=== PATIENT | male | born 1990 | race Caucasian/White ===

== ENCOUNTER 2021-10-25 20:02 | Emergency (ER) | payer OTHER, SELFPAY ==
[2021-10-25 20:13] VITALS: BP 148/78; PULSE 99; RESP 17; TEMP 37; O2SAT 99
--- NOTE | 2021-10-25 20:50 | ED.PSYCH ---
HPI - Psych General Chief Complaint: Psychiatric Symptoms Stated Complaint: MENTAL HEALTH EVAL Time Seen by Provider: 10/25/21 20:30 Source: patient Mode of arrival: ambulatory Limitations: no limitations History of Present Illness HPI Narrative: Patient is a 31-year-old male was sent here by the police for mental health evaluation after he locked himself in the bathroom with a gun. Patient states that he had a heated argument with his family, he had been drinking which it amplified the argument so he went to the bathroom with regard. Patient states that he did not intend to use it on himself or others, states that he was not thinking right because he also had been drinking. Patient states that he has 1 episode of suicidal thought years ago but has not occurred since. Patient denies any psych illnesses such as anxiety, depression, bipolar or schizophrenia. Patient currently denies any suicidal or homicidal thoughts. Related Data Home Medications Medication Instructions Recorded Confirmed No Home Medications 10/25/21 Allergies Allergy/AdvReac Type Severity Reaction Status Date / Time No Known Allergies Allergy Verified 10/25/21 20:18 Review of Systems Review of Systems: All systems reviewed & are unremarkable except as noted in HPI and below Constitutional: Constitutional: Denies body ache(s), Denies chills, Denies excessive sweating, Denies fatigue, Denies fever(s), Denies headache(s), Denies lethargy, Denies malaise, Denies weakness and Denies weight loss Eyes: Eyes: Denies blurry vision, Denies change in vision and Denies loss of vision ENT: Denies dizziness, Denies ear discharge, Denies headache(s), Denies lip swelling, Denies epistaxis, Denies nasal congestion, Denies neck pain, Denies throat swelling and Denies tongue swelling Cardiovascular: Cardiovascular: Denies chest pain, Denies chest pain at rest, Denies chest pain with activity, Denies diaphoresis, Denies rapid heart rate, Denies edema, Denies irregular heart rhythm, Denies lightheadedness, Denies palpitations, Denies dyspnea and Denies dyspnea on exertion Respiratory: Respiratory: Denies chest congestion, Denies cough, Denies hemoptysis, Denies dyspnea and Denies dyspnea on exertion Gastrointestinal: Gastrointestinal: Denies abdominal pain, Denies melena, Denies hematochezia, Denies diarrhea, Denies nausea, Denies vomiting and Denies hematemesis Musculoskeletal: Musculoskeletal: Denies abnormal gait, Denies deformity, Denies joint swelling, Denies limited range of motion, Denies neck pain and Denies numbness Neurologic: Denies Abnormal speech present, Denies abnormal gait, Denies confusion, Denies dizziness, Denies headache(s), Denies focal weakness, Denies loss of vision, Denies numbness, Denies Other visual disturbances, Denies Sensory deficit (Neuro) and Denies weakness Psychiatric: Psychiatric: Denies confusion, Denies depression, Denies auditory hallucinations, Denies homicidal ideation and Denies suicidal ideation Endocrine: Endocrine: Denies cold intolerance, Denies excessive sweating, Denies fatigue, Denies heat intolerance and Denies palpitations Hematologic/Lymphatic: Hematologic/Lymphatic: Denies easy bleeding and Denies easy bruising Allergic/Immunologic: Allergic/Immunologic: Denies lip swelling, Denies throat swelling and Denies tongue swelling PMFSH Social History Social History Substance use type: other Comments Past medical history: None Family history: Unknown Social history: Non-smoker, occasional EtOH use, no drug use Exam Const: General: cooperative, healthy appearing, comfortable, no acute distress, well developed, alert and awake; No confusion Orientation/consciousness: oriented to person, oriented to place, oriented to time, patient oriented x3 and No confusion Limitations: no limitations HENMT: Head: normal to inspection, normocephalic and atraumatic Ears: hearing
[2021-10-25 20:55] LABS: Basophils Absolute Auto 0.1 K/mm3 (0.0-0.1); Basophils Percent Auto 0.9 % (0.2-1.2); Eosinophils Percent Auto 0.5 % (0-4.4); Hematocrit 45.6 % (42.0-52.0); Hemoglobin 15.4 g/dL (14.0-18.0); Immature Granulocyte Absolute 0.02 K/mm3 (0.00-0.031); Immature Granulocyte Percent A 0.3 % (0-0.5); Lymphocytes Absolute Auto 1.95 K/mm3 (0.9-3.2); Lymphocytes Percent Auto 33.6 % (18.3-44.2); Mean Corpuscular HGB Conc 33.8 g/dl (32-36); Mean Corpuscular Hemoglobin 30.1 pg (26-34); Mean Corpuscular Volume 89.2 fl (80-100); Mean Platelet Volume 10.5 fl (7.4-10.4); Monocytes Absolute Auto 0.4 K/mm3 (0.1-0.6); Monocytes Percent Auto 6.6 % (2.6-8.5); Neutrophils Absolute Auto 3.4 K/mm3 (1.3-6.7); Neutrophils Percent Auto 58.1 % (45.5-73.1); Platelet Count Result 290 k/mm3 (150-375); Red Blood Count 5.11 M/mm3 (4.6-6.20); Red Cell Distribution Width 12.8 % (11.5-14.5); White Blood Count 5.8 K/mm3 (4.5-10.0)
[2021-10-25 21:06] LABS: Acetaminophen < 10 ug/mL (10-30); Ethanol 102 mg/dL (<10); Salicylate < 1.0 mg/dL (2-20)
[2021-10-25 21:08] LABS: Alanine Aminotransferase 31 U/L (4-50); Alkaline Phosphatase 114 U/L (38-126); Anion Gap 10 mmol/L (8-16); Aspartate Amino Transferase 37 U/L (17-59); Bilirubin,Total 0.2 mg/dL (0.2-1.3); Blood Urea Nitrogen 14 mg/dL (9-20); Calcium 9.6 mg/dL (8.4-10.2); Carbon Dioxide 28 mmol/L (22-30); Chloride 103 mmol/L (98-107); Estimated CRCL calculation 69 ml/min; Estimated Glomerular Filt Rate > 60; Glucose 82 mg/dL (65-110); Potassium 4.3 mmol/L (3.4-5.0); Sodium 141 mmol/L (137-145)
[2021-10-25 21:13] LABS: Amphetamine Screen Urine Negative (Negative); Barbiturate Screen Urine Negative (Negative); Benzodiazepines Screen Urine Negative (Negative); Cannabinoid Screen Urine Negative (Negative); Cocaine Screen Urine Negative (Negative); Methadone Screen Urine Negative (Negative); Opiate Screen Urine Negative (Negative); Phencyclidine Screen Urine Negative (Negative)
[2021-10-25 22:11] LABS: SARS-CoV-2 RNA PCR Negative
--- NOTE | 2021-10-25 22:15 | PC.NURSE ---
RN spoke with [facility] who states they will send out a worker
--- NOTE | 2021-10-26 00:45 | PC.NURSE ---
Attempted to reach [facility] to check on status of parts department manager. No answer. Left message on answering service.
--- NOTE | 2021-10-26 01:55 | PC.NURSE ---
[facility] called and states they will have someone here within the hour.
--- NOTE | 2021-10-26 02:05 | PC.NURSE ---
Crisis manager sales training will arrive in approx. 45 min.
--- NOTE | 2021-10-26 02:19 | PC.NURSE ---
[facility] ETA 20 min.
--- NOTE | 2021-10-26 02:40 | PC.NURSE ---
grain oilseed or pasture farm worker speaking with roommate and evaluating patient at this time.
--- NOTE | 2021-10-26 04:07 | PC.NURSE ---
sheet ironworker faxed chart to multiple facilities. No beds at this time. Waiting to hear from Peter.
[2021-10-26 06:11] VITALS: BP 134/85; PULSE 85; RESP 16; O2SAT 98
--- NOTE | 2021-10-26 07:21 | PC.NURSE ---
Assumed care of pt at this time, Pt is resting on stretcher, alert to verbal stimuli. Discussed POC w/ pt. Called dietary and ordered breakfast tray for pt at this time.
--- NOTE | 2021-10-26 08:01 | PC.NURSE ---
Call received from Lynnette with [facility] - asking if still needing a bed for this pt, this RN confirmed still seeking placement - Lynnette states they are reviewing the pts chart and will call back when a decision has been made.
--- NOTE | 2021-10-26 08:45 | PC.NURSE ---
Tabitha from [facility] called to álvaro if we have heard back from [facility], this RN gave update awaiting on records to be reviewed. Per Tabitha, will give a little more time and then will call [facility] to álvaro on acceptance status.
--- NOTE | 2021-10-26 10:17 | PC.NURSE ---
spoke to pts mother on the phone, she called requesting information and to find out if she could visit the pt. This RN asked pt for what to tell mother and if permission to share information. Pt states Just tell her I am here, and thats it. Pt mother told exactly what pt said and no other information given.
[2021-10-26 10:18] VITALS: BP 124/87; PULSE 89; RESP 15; O2SAT 100
--- NOTE | 2021-10-26 11:11 | PC.NURSE ---
[facility] called to ask how often pt uses alcohol - they only have one male bed left for substance abusers. Pt states he drinks very, very rarely - it was a birthday weekend. This RN notified [facility] pt drinks rarely. They state they need to figure out if they can place him, would put him in temporary bed (substance abuse) for evening and regular room tomorrow. Will determine if this is a possibility and call us back either way.
--- NOTE | 2021-10-26 12:40 | PC.NURSE ---
Updated pt and pt sister at bedside, ordered lunch tray w/ dietary at this time.
[2021-10-26 14:53] VITALS: BP 122/83; PULSE 74; RESP 15; O2SAT 97
[2021-10-26 16:45] VITALS: BP 129/84; PULSE 67; RESP 15; O2SAT 100
--- NOTE | 2021-10-26 16:55 | PC.NURSE ---
[facility] accepted transfer to [facility] ETA 20:00
--- NOTE | 2021-10-26 19:20 | PC.NURSE ---
[facility] here.
--- NOTE | 2021-10-26 19:28 | PC.NURSE ---
EMS here for transport. pts belongings given to EMS along with wallet and clothes. no questions at time of discharge
--- NOTE | 2021-10-26 19:35 | PC.NURSE ---
Dre from [facility] called to see if pt had already left the ER because pts health insurance dose not cover that facility. Dre notified that pt has already left the ER at this time.
== END 2021-10-26 19:29 ==
PROVIDERS: Emergency Provider Emergency Medicine
DX: R45.851 Suicidal ideations (principal); Z20.822 Contact with and (suspected) exposure to COVID-19
CPT/HCPCS: 36415; 80053; 80307; 84443; 85025; 99285; C9803; U0003; U0005